=== PATIENT | male | born 1955 | race Asian ===

== ENCOUNTER 2021-11-19 07:54 | Emergency (ER) | payer MEDICARE ==
[~2021-11-19] VITALS: Ht 162.6 cm; Wt 64.0 kg
[2021-11-19] MEDS ORDERED: VISCOUS LIDOCAINE 2% 15 ML UDC PO ONE (08:15)
[2021-11-19] MEDS ORDERED: MAGNESIUM/ALUMINUM HYDROXIDE/SIMETHICONE 30ML UDC PO ONE (08:15)
[2021-11-19] MEDS ORDERED: ASPIRIN 81MG TABLET PO ONE (08:15)
[2021-11-19 09:38] LABS: BASOPHILS % 0.5 % (0.0-2.0); EOSINOPHILS % 5.6 % (0.0-5.0); HEMATOCRIT. 40.5 % (42.0-52.0); HEMOGLOBIN. 13.8 g/dL (14.0-18.0); LYMPHOCYTES % 37.7 % (20.0-50.0); MEAN CORPUSCULAR HEMOGLOBIN 29.7 pg (28.0-32.0); MEAN CORPUSCULAR VOLUME 87.4 fL (80.0-94.0); MEAN PLATELET VOLUME 8.5 fl (7.4-10.4); MONOCYTES % 8.4 % (2.0-8.0); NEUTROPHILS % 47.8 % (40.0-76.0); PLATELET 214 x1000/uL (130-400); RED BLOOD CELL COUNT 4.64 mill/uL (4.7-6.1); RED CELL DISTRIBUTION WIDTH 13.6 % (11.6-14.6)
[2021-11-19 09:44] LABS: CHLORIDE 107 mEq/L (98-107)
[2021-11-19] MEDS ORDERED: MAGNESIUM/ALUMINUM HYDROXIDE/SIMETHICONE 30ML UDC PO NR (11:00)
[2021-11-19] MEDS ORDERED: ASPIRIN 81MG TABLET PO NR (11:00)
[2021-11-19] MEDS ORDERED: VISCOUS LIDOCAINE 2% 15 ML UDC PO NR (11:00)
== END 2021-11-19 13:20 | disposition home or self-care (01) ==
LOC: ER 07:54
DX: R07.89 Other chest pain (principal); R10.13 Epigastric pain; E11.9 Type 2 diabetes mellitus without complications; Z72.0 Tobacco use
CPT/HCPCS: 36415; 71045; 80053; 83880; 84484; 85025; 85379; 93005; 99285